=== PATIENT | female | born 1995 | race Two or more races ===

== ENCOUNTER 2021-09-05 12:48 | Inpatient (IN) | payer OTHER ==
[~2021-09-05] VITALS: Ht 121.9 cm; Wt 2.3 kg
[~2021-09-05 12:48] MED LIST: FOLIC ACID20 MG PO; PRENATAL CAPLE1 EAC1 PO
[2021-09-05] MEDS ORDERED: PRENATAL CAPLE1 EAC1 PO (14:39)
== END 2021-10-03 13:01 | disposition home or self-care (01) | DRG 805 ==
LOC: OB/GYN 12:48 → LDR 12:48 → OB/GYN 09-06 09:59
PROVIDERS: ADMIT Obstetrics & Gynecology; ATTEND Obstetrics & Gynecology
PROC: 10E0XZZ Delivery of Products of Conception, External Approach (ICD-10-PCS; principal; 2021-09-05)
PROC: BY4FZZZ Ultrasonography of Third Trimester, Single Fetus (ICD-10-PCS; 2021-09-05)
PROC: 4A1HXFZ Monitoring of Products of Conception, Cardiac Rhythm, External Approach (ICD-10-PCS; 2021-09-05)
PROC: BY4FZZZ Ultrasonography of Third Trimester, Single Fetus (ICD-10-PCS; 2021-09-13)
PROC: BY4FZZZ Ultrasonography of Third Trimester, Single Fetus (ICD-10-PCS; 2021-09-18)
PROC: BY4FZZZ Ultrasonography of Third Trimester, Single Fetus (ICD-10-PCS; 2021-09-26)
DX: O42.113 Preterm premature rupture of membranes, onset of labor more than 24 hours following rupture, third trimester (principal); O60.14X0 Preterm labor third trimester with preterm delivery third trimester, not applicable or unspecified; Z37.0 Single live birth; O99.824 Streptococcus B carrier state complicating childbirth; Z3A.30 30 weeks gestation of pregnancy; Z20.822 Contact with and (suspected) exposure to COVID-19

== ENCOUNTER → 2025-10-20 | Emergency (ER) | payer OTHER ==
[~2025-10-20] VITALS: Ht 149.9 cm; Wt 49.9 kg
[~2025-10-20] MED LIST changes: +0.9 % SODIUM CHLORIDE 1,000 ML IV STA; +FAMOTIDINE/PF 20 MG/2 ML VIAL IV STA; +ONDANSETRON HCL 2 MG/ML VIAL IV STA
== END | disposition left against medical advice (07) ==
LOC: ER 12:37
DX: R55 Syncope and collapse (principal)